=== PATIENT | female | born 1940 | race Caucasian/White ===

== ENCOUNTER 2018-05-01 11:20 | Outpatient (CLI) | payer MEDICARE, OTHER ==
--- NOTE | 2018-05-01 13:39 | RAD ---
LUMBAR SPINE 4 VIEWS: HISTORY: Spondylolisthesis lumbar region, low back pain. FINDINGS: Four views of the lumbar spine including flexion and extension standing lateral views demonstrate 0.8 cm grade I/II anterolisthesis of L5 on S1. There is also anterolisthesis of L4 on L5 with worsening with flexion, evidence for some abnormal translation. Generalized disk desiccation changes and liga ment and facet hypertrophic changes. Mild dextroscoliosis. IMPRESSION: Evidence for abnormal translation at L4-L5. Stable anterolisthesis of L5 on S1. Bone demineralizati on. Mild dextroscoliosis. POS: [facility]
== END 2018-05-01 11:21 | disposition home or self-care (01) ==
LOC: BICRAD 11:20
PROVIDERS: ATTEND Anesthesiology Pain Medicine
DX: M43.17 Spondylolisthesis, lumbosacral region (principal); M41.9 Scoliosis, unspecified
CPT/HCPCS: 72110